=== PATIENT | female | born 2000 | race Caucasian/White ===

== ENCOUNTER 2024-08-28 08:04 | Outpatient (CLI) | payer OTHER, SELFPAY ==
--- NOTE | 2024-08-28 08:15 | CRLHL7_ITS ---
For Patients: As a result of the Cures Act, medical imaging exams and procedure reports are released immediately into your electronic medical record. You may view this report before your referring provider. If you have questions, please contact your health care provider. INDICATION: First trimester scan, establish dates. COMPARISON: None. TECHNIQUE: Real-time abreu-scale imaging of the pelvis was performed. FINDINGS: Sonographic imaging demonstrates a single living intrauterine gestation. The embryo demonstrates a regular cardiac rate measuring 167 beats per minute. The embryo`s crown-rump length measurement of 1.3 cm corresponds to a gestational age of 7 weeks 4 days with a sonographic due date of 04/12/2025. There is a normal-appearing yolk sac. There are no gross abnormalities noted within the embryo at this early state of development. The gestational sac has a normal appearance. Inferior subchorionic hemorrhage measures 18 x 6 x 10 millimeters. Additional inferior subchorionic hemorrhage measures 8 x 3 x 6 millimeters. Superior subchorionic hemorrhage measures 13 x 4 x 3 millimeters. The amount of fluid within the sac appears appropriate for gestational age. The cervix is closed. The myometrium appears normal. The ovaries are of normal size. Corpus luteal cyst left ovary. There are no suspicious fluid collections noted in the cul-de-sac. IMPRESSION: Single living intrauterine with sonographic gestational age 7 weeks 4 days and sonographic due date 04/12/2025. Three subchorionic hemorrhages measuring up to 1.8 cm. Dictated by Jose Carlos Nava MD @ 08/28/2024 10:51:15 AM (Electronically Signed)
== END 2024-08-28 08:05 | disposition home or self-care (01) ==
LOC: US 08:05
PROVIDERS: Visit Provider Registered Nurse
DX: Z34.91 Encounter for supervision of normal pregnancy, unspecified, first trimester (principal); O20.9 Hemorrhage in early pregnancy, unspecified; Z3A.01 Less than 8 weeks gestation of pregnancy
CPT/HCPCS: 76817; 82565; 82570; 84156; 84450; 84460; 84520; 86592; 86703; 86704; 86706; 86762; 86787; 86803; 86850; 86900; 86901; 87086; 87340; 87491; 87591

== ENCOUNTER 2024-09-11 10:34 | Outpatient (CLI) | payer OTHER, SELFPAY ==
--- NOTE | 2024-09-11 10:45 | CRLHL7_ITS ---
For Patients: As a result of the Century Cures Act, medical imaging exams and procedure reports are released immediately into your electronic medical record. You may view this report before your referring provider. If you have questions, please contact your health care provider. INDICATION: Follow-up subchorionic hemorrhages COMPARISON: 08/28/2024 TECHNIQUE: Real-time abreu-scale imaging of the pelvis was performed. FINDINGS: Sonographic imaging demonstrates a single living intrauterine gestation. The embryo demonstrates a regular cardiac rate measuring 179 beats per minute. The embryo`s crown-rump length measurement of 2.7 cm corresponds to a gestational age of 9 weeks 4 days with a sonographic due date of 04/12/2025. There is a normal-appearing yolk sac. There are no gross abnormalities noted within the embryo at this early state of development. The gestational sac has a normal appearance. Inferior left subchorionic hemorrhage measures 1.4 x 0.9 x 0.8 cm. Inferior right subchorionic hemorrhage measures 1.8 x 1.4 x 1.1 cm. The amount of fluid within the sac appears appropriate for gestational age. The cervix is closed. The myometrium appears normal. The ovaries are of normal size. Corpus luteal cyst left ovary. There are no suspicious fluid collections noted in the cul-de-sac. IMPRESSION: There are 2 inferior subchorionic hemorrhages measuring 1.4 cm and 1.8 cm. The superior subchorionic hemorrhage is no longer present. Dictated by Jose Carlos Nava MD @ 09/11/2024 11:57:06 AM (Electronically Signed)
== END 2024-09-11 10:35 | disposition home or self-care (01) ==
LOC: US 10:34
PROVIDERS: Visit Provider Registered Nurse
DX: O20.9 Hemorrhage in early pregnancy, unspecified (principal)
CPT/HCPCS: 76801; 76817

== ENCOUNTER 2024-12-04 09:59 | Outpatient (CLI) | payer OTHER, SELFPAY ==
--- NOTE | 2024-12-04 10:15 | CRLHL7_ITS ---
For Patients: As a result of the Century Cures Act, medical imaging exams and procedure reports are released immediately into your electronic medical record. You may view this report before your referring provider. If you have questions, please contact your health care provider. OBSTETRICAL ULTRASOUND ??? ANATOMY SURVEY INDICATION: anatomy survey. LMP: 06/26/2024. MARLENI by LMP: 04/12/2025. GESTATIONAL AGE: 21w 4d. TECHNIQUE: Transabdominal pelvic ultrasound. FINDINGS: position: Breech. Cervix: Visualized. Length of closed cervix: 3.0 cm. Placenta position: Posterior. Placenta tip to internal os: 7.3 cm. Umbilical cord: 3-vessel cord. Placental insertion: Central. Amniotic fluid: 3.7 cm SDP (>2-<8cm) ANATOMY SURVEY: Observed Structures Cerebellum: 2.2 cm, 22 weeks 2 days Cisterna magna: 6.4 mm Nuchal fold: 5.1 mm Lateral ventricle: 5.3 mm CSP Midline falx Choroid plexus Spine Stomach Abdominal cord insert Urinary bladder Kidneys Diaphragm Nose/lips Orbital view Profile Upper extremities Lower extremities Hands Feet 4-chamber heart LVOT RVOT 3VV 3VTV Biometry: BPD: 5.1 cm, 21 weeks 2 days, 36.7 % HC: 18.8 cm, 21 weeks 1 days, 20.5 % AC: 17.6 cm, 22 weeks 4 days, 72.8 % FL: 3.5 cm, 20 weeks 6 days, 19.4 % FL/AC: 19.66 % HC/AC ratio: 1.07 heart rate: 157 bpm age by this ultrasound: 21 weeks 4 days MARLENI by this ultrasound: 04/12/2025 Estimated weight: 443.9 grams (1 pound 0 ounces) Percentile by MARLENI: 51.0 % IMPRESSION: Single live intrauterine gestation. No gross anomalies visualized. Dorota Bravo M.D. Diagnostic/Breast Radiologist [email or web address] SP/Dictated by: Dorota Bravo MD @ 12/04/2024 6:14:00 PM (Electronically Signed)
== END 2024-12-04 10:00 | disposition home or self-care (01) ==
LOC: US 10:00
PROVIDERS: Visit Provider Obstetrics & Gynecology
DX: Z34.92 Encounter for supervision of normal pregnancy, unspecified, second trimester (principal); Z3A.21 21 weeks gestation of pregnancy
CPT/HCPCS: 76805

== ENCOUNTER 2025-01-22 11:06 | Outpatient (CLI) | payer OTHER, SELFPAY | END 2025-01-22 11:07 | disposition home or self-care (01) | LOC: NFLDREF 11:06 | PROVIDERS: Visit Provider Obstetrics & Gynecology | DX: O99.013 Anemia complicating pregnancy, third trimester (principal); Z3A.28 28 weeks gestation of pregnancy | CPT/HCPCS: 82728; 86592 ==

== ENCOUNTER 2025-03-06 10:10 | Outpatient (CLI) | payer OTHER, SELFPAY | END 2025-03-06 10:11 | disposition home or self-care (01) | LOC: NFLDREF 03-13 15:41 | PROVIDERS: Visit Provider Obstetrics & Gynecology | DX: O99.013 Anemia complicating pregnancy, third trimester (principal); D64.9 Anemia, unspecified; Z3A.34 34 weeks gestation of pregnancy | CPT/HCPCS: 82728 ==

== ENCOUNTER 2025-03-26 13:15 | Outpatient (RCR) | payer OTHER, SELFPAY ==
--- NOTE | 2025-03-08 09:38 | ONC.NURNOTE ---
Diagnosis: Iron Deficiency Anemia of
[2025-03-13 08:15] VITALS: BP 127/81; PULSE 97; RESP 18; TEMP 36.7; O2SAT 98
[2025-03-13 09:15] VITALS: BP 122/79; PULSE 86; RESP 16; TEMP 36.6; O2SAT 98
[2025-03-13 09:50] VITALS: BP 117/78; PULSE 88; RESP 16; TEMP 36.8; O2SAT 99
[2025-03-18 13:56] VITALS: BP 122/84; PULSE 105; RESP 16; TEMP 36.8; O2SAT 99
[2025-03-18 14:37] VITALS: BP 116/75; PULSE 109; RESP 16; TEMP 36.7; O2SAT 97
[2025-03-18 15:12] VITALS: BP 107/70; PULSE 98; RESP 12; TEMP 36.6; O2SAT 98
[2025-03-20 13:48] VITALS: BP 119/77; PULSE 90; TEMP 36.4; O2SAT 99
[2025-03-20 14:39] VITALS: BP 112/75; PULSE 88; RESP 14; O2SAT 98
[2025-03-20 15:05] VITALS: BP 114/76; PULSE 87; RESP 16; O2SAT 97
[2025-03-22 08:04] VITALS: BP 119/78; PULSE 100; TEMP 36.1; O2SAT 98
[2025-03-22 09:05] VITALS: BP 109/76; PULSE 91; RESP 16; TEMP 36.3; O2SAT 97
[2025-03-26 13:20] VITALS: BP 121/74; PULSE 86; RESP 16; TEMP 36.7; O2SAT 98
[2025-03-26 14:13] VITALS: BP 109/72; PULSE 77; RESP 16; O2SAT 98
[2025-03-26] MEDS: SODIUM CHLORIDE 0.9 % (FLUSH) 10 ML SYRINGE IVF (14:13)
== END 2025-09-09 23:59 | disposition home or self-care (01) ==
LOC: CCIC 13:15
PROVIDERS: Visit Provider Clinical Nurse Specialist
DX: O99.013 Anemia complicating pregnancy, third trimester (principal); D50.9 Iron deficiency anemia, unspecified
CPT/HCPCS: 87081; 87653; 96365; J1756; J7050

== ENCOUNTER 2025-04-13 17:49 | Outpatient (CLI) | payer OTHER, SELFPAY ==
--- OUTSIDE RECORDS SUMMARY | 2025-04-13 18:23 | XMS_ITS | Clinical Summary ---
Author Organization [facility] Address [address] [place] [address] Care Team Providers Care Interpreter Translator Name Role Phone Sasha Byrne APRN, C.N.P. Primary Care Pro vider Source Comments Patient records contain information from all sites at [facility]. For routine questions regarding patient records, call [phone] during business hours, M-F 8:00 AM - 5:00 PM Central Time. Record requests for emergency care only can be directed to [phone] at any time.[facility] Allergies Active Allergy Reactions Criticality Noted Date Comments Amoxicillin Rash 01/13/2016 Medications * This document contains information received from the source organization and may not represent a complete record from that organization. dextroamphetamin e-amphetamine (AdderalL) 5 mg tablet Take 1 tablet (5 mg total) by mouth daily. 30 tablet 06/12/2024 Active Active Problems Problem Noted Date Diagnosed Date Attention Deficit With Hyperactivity Disorder Encounters Date Type Department Care Team Description 02/19/2025 Orders Only [facility] PCP [facility] Sasha Byrne APRN, C.N.P. from Last 3 Months Immunizations Immunization Administration Dates Next Due 4vHPV (discontinued) 06/08/2010 DTaP (Infanrix, [employer]) 06/14/2003,,1998,1998, 1998 HPV, Unspecified 02/01/2011,08/12/2010, 0 HepA Pediatric/Adolescent 02/26/2014,06/08/2010 HepB, Unspecified 02/02/1999,1998,08/04/19 98 Hib, Unspecified 1998,1998, 8 IPV 06/14/2003 Influenza, Seasonal, Injectable 07/10/2014 MCV4 (Menactra)(Discontinued) 03/20/2014 MMR 06/14/2003,07/15/1999 OPV 10/14/1999,08/04/1999,1998 Tdap 05/18/2022,06/08/2010 JONE 06/08/2010,06/14/2003 Family History Relation Name Status Comments Father Alive Mother Alive Social History Tobacco Use Types Packs/Day Years Used Date Smoking Tobacco: Former Smokeless Tobacco: Never Tobacco Cessation:Counseling Given: Yes Alcohol Use Standard Drinks/Week Comments Not Currently 0 (1 standard drink = 0.6 oz pur e alcohol) Humiliation, Afraid, Rape, and Kick questionnair e Answer Date Recorded Fear of Current or Ex-Partner No Emotionally Abused No 04/03/2019 Physically Abused No 04/03/2019 Sexually Abused No 04/03/2019 Hunger Vital Sign Answer Date Recorded Worried About Running Out of Food in the Last Ye ar Never true 04/03/2019 Ran Out of Food in the Last Year Never true 04/03/2019 PRAPARE - Transportation Answer Date Re corded Lack of Transportation (Medical) No 04/03/2019 Lack of Transportation (Non-Medical) No 04/03/2019 Depression Answer Date Recor ded PHQ-9 Total Score (max 27) 0 07/12 Education Answer Date Recorded What is the highest level of school you have completed or the highest degree you have received? 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 Gender Identity Not on file Sexual Orientation Not on file Last Filed Vital Signs Vital Sign Reading Time Taken Comments Blood Pressure 118/74 06/12/2024 3:12 PM CDT Pulse 75 06/12/2024 3:12 PM CDT Temperature 36.3 C (97.3 F) 06/12/2024 3:12 PM CDT Respiratory Rate 20 06/12/2024 3:12 PM CDT Oxygen Saturation 100% 07/12/2023 7:48 AM CDT Inhaled Oxygen Concentration - - Weight 61.7 kg (136 lb) 06/12/2024 3:12 PM CDT Height 164 cm (5' 4.57) 06/12/2024 3:12 PM CDT Body Mass Index 22.94 06/12/2024 3:12 PM CDT Plan of Treatment Health Maintenance Due Date Last Done Comments COVID-19 Vaccine ( season) 2024 Influenza Vaccine (#1) 2024 07/10/2014 Depression Screening (Annual PHQ-2) 10/17/2024 Cervical/Vaginal Cancer Screening 05/18/2025 05/18/2022, 04/03/2019 HIV Screening 06/12/2025 Postponed from 1998 (Patient Refused) Hepatitis C Screening 06/12/2025 Postpo magnolia from 1998 (Patient Refused) Tobacco Cessation counseling 06/12/2025 06/12/2024 DTaP,Tdap,and Td Vaccines (8 - Td or Tdap) 05/18/2032 05/18/2022, 06/08/2010, 06/14/2003, Additional history exists Hepatitis B Vaccines Completed 02/02/1999, 1998, 1998 IPV Vaccines Completed 06/14/2003, 09/17, 08/04/1999, Additional history exists Varicella Vaccines Completed 06/08/2010, 06/14/2003 HPV Vaccines Completed 02/01/2011, 07/18, 06/08/2010, Additional history exists Pneumococcal vaccine (0-49 years) Aged Out No longer eligible based on patient's age to complete this topic Procedures Procedure Name Priority Date/Time Associated Diagnosis Comments THINPREP SCREEN HPV REFLEX Routine 05/18/2022 11:21 AM CDT Well Adult Examination Normal from Last 3 Months or Most Recently Relevant to Health Maintenance Results * ThinPrep Screen HPV Reflex (05/18/2022 11:21 AM CDT) 05/26/2022 2:05 PM CDT [facility] Report electronically signed by Jorge Long MD I verify that I have examined all relevant slides/materials for the specimen(s) and rendered or confirmed the diagnosis. 05/26/2022 2:05 PM CDT [facility] Gross Description Received specimen in a ThinPrep vial. 05/26/2022 2:05 PM CDT [facility] Pap Test Source Cervical/Endocervi zain 05/26/2022 2:05 PM CDT [facility] Hormone Therapy/Contracep tives None/Not known 05/26/2022 2:05 PM CDT [facility] Interpretation Cervical/Endocervi zain (ThinPrep): Satisfactory for Evaluation Negative for Intraepithelial Lesion or Malignancy Reactive cellular changes associated with: Reparative or inflammatory changes 05/26/2022 2:05 PM CDT [facility] Varies (Cervix/Endocerv ix) 05/18/2022 11:21 AM CDT 05/19/2022 6:15 AM CDT Sasha Byrne APRN, C.N.P. LAB PAP PATHDX OR DERABLES Final Result [facility] [address] [place] [address], [facility] [address] [place] [phone] from Last 3 Months or Most Recently Relevant to Health Maintenance Care Teams Interpreter Translator Relationship Specialty Start Date End Date Sasha Byrne APRN, C.N.P. [facility] [address] [place] [address] PCP - General 03/31/17
[2025-04-13 18:56] VITALS: BP 118/66; PULSE 91
[2025-04-13] MEDS: ONDANSETRON ODT 4 MG TAB PO (20:27)
[2025-04-13] MEDS: hydrOXYzine pamoate 25 MG CAPSULE 100 MG PO (20:28)
[2025-04-13] MEDS: MORPHINE 10 MG/ML inj IM (20:29)
--- NOTE | 2025-04-13 23:26 | PC.OBNST ---
NST Note NST Note Start: 04/13/25 17:43 Freq: ONCE Status: Discharge Protocol: Document 04/13/25 20:54 LORAINE (Rec: 04/13/25 20:55 LORAINE [id number]) NST Note 1 Para (# of births) 0 EDC 04/12/25 Gestational Age In 40 Weeks & 1 Days Weeks & Days Patient Presented Contractions/cramping with Complaint(s) of Reactive Yes Appropriate for Yes Gestational Age RN Vanna RN Date 04/13/25 Reactive Yes Appropriate for Yes Gestational Age RN Michael RN Date 04/13/25 OB NST charge Yes Complete NST Note Yes via Write Note The provider's electronic signature indicates the NST is reactive/appropriate for gestational age. *Note to provider: If an addendum is required, open the patient's chart and click on the note under the Nurse/Allied Health tab.
== END 2025-04-13 21:52 | disposition home or self-care (01) ==
LOC: OB OUT 17:50 → OB 20:22
PROVIDERS: Visit Provider Obstetrics & Gynecology
DX: O47.1 False labor at or after 37 completed weeks of gestation (principal); Z3A.40 40 weeks gestation of pregnancy
CPT/HCPCS: 59025; G0463; A9270; J2270

== ENCOUNTER 2025-04-14 03:06 | Inpatient (IN) | payer OTHER, SELFPAY ==
[2025-04-14] VITALS (137 sets, daily range): BP systolic 100–146; BP diastolic 50–85; PULSE 66–134; RESP 16–18; TEMP 36.6–38.1; O2SAT 91–100; BMI 33.2
--- OUTSIDE RECORDS SUMMARY | 2025-04-14 02:41 | XMS_ITS | Clinical Summary ---
Author Organization [facility] Address [address] [place] [address] Care Team Providers Care First Responder Name Role Phone Sasha Byrne APRN, C.N.P. Primary Care Pro vider Source Comments Patient records contain information from all sites at [facility]. For routine questions regarding patient records, call [phone] during business hours, M-F 8:00 AM - 5:00 PM Central Time. 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 [facility] [address] [place] [address] PCP - General 03/31/17
[2025-04-14] MEDS: LACTATED RINGERS 1000 ML 1,000 ML 999 ML IV ×2 (03:03→04:11)
[2025-04-14 03:04] LABS: Hematocrit 39.5 % (33.0-51.0); Hemoglobin* 13.0 gm/dL (12.0-16.0); Immature Granulocytes Pct Auto 0.9 %; Mean Corpuscular HGB Conc 33 gm/dL (32-36); Mean Corpuscular Hemoglobin 28 pg (26-34); Mean Corpuscular Volume 84 fL (80-100); RDW Coefficient of Variation % 21.7 % (11.5-15.5); Red Blood Count 4.70 m/uL (4.00-5.20); White Blood Count* 17.61 K/uL (4.50-11.00)
[2025-04-14 03:08] LABS: Immature Granulocytes Abs Auto 0.20 K/uL (0.00-0.30); Lymphocytes Absolute Auto 1.30 K/uL (0.90-2.90); Slide Review Reflex No
[2025-04-14] MEDS: LIDOCAINE 2% (PF) 5 ML VIAL EPIDURAL (03:58)
[2025-04-14] MEDS: ROPIVACAINE 0.2% 100 ml 100 ML 12 MG EPIDURAL ×2 (04:01→12:06)
--- NOTE | 2025-04-14 04:15 | P.ANBPRC_ITS ---
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 living situation?: I presently have a place to live Problems where you live: no known problems In the past 12 months, utilities in danger of being shut off: no In past 12 months, lack of transportation kept you from medical appts, meetings, work, or getting things needed for daily living: no In the past 12 mos, have been you worried that your food would run out before you had money to buy more?: never true In the past 12 mos, the food you bought just didn't last and you didn't have money to buy more?: never true Smoking Status: Former smoker How often does anyone, including family, friends and others, physically hurt you : never How often does anyone, including family, friends and others, insult or talk down to you: never How often does anyone, including family, friends and others, threaten you with harm: never How often does anyone, including family, friends and others, scream or curse at you: never Meds Home Medications and Allergies Home Medications ?Medication ?Instructions ?Recorded ?Confirmed ?Type docosahexaenoic acid 200 mg mg PO 08/28/24 04/09/25 Hi story capsule ( DHA) omeprazole 40 mg capsule,delayed 40 mg PO QDAY #90 cap s 03/20/25 04/09/25 Rx release Allergies Allergy/AdvReac Type Severity Reaction Status Date / Time amoxicillin Allergy Intermediate Verified 04/09/25 10:42 Results Labs Labs: Laboratory Results - last 24 hr 04/14/25 02:50 WBC 17.61 H RBC 4.70 Hgb 13.0 Hct 39.5 MCV 84 MCH 28 MCHC 33 RDW Coeff of Alesha 21.7 H Plt Count 238 Neut % (Auto) 87.3 H Lymph % (Auto) 7.6 L Traill % (Auto) 4.1 Eos % (Auto) 0.0 Baso % (Auto) 0.1 Neut # (Auto) 15.40 H Lymph # (Auto) 1.30 Traill # (Auto) 0.70 Eos # (Auto) 0.00 Baso # (Auto) 0.00 Abs Immat Gran (auto) 0.20 Imm/Tot Granulo (auto) 0.9 Blood Type A Positive Antibody Screen NEGATIVE Vital Signs Vital Signs: Last Vital Signs Pulse 115 H 04/14/25 04:13 BP 116/66 04/14/25 04:13 Pulse Ox 98 04/14/25 04:10 Weight: 87.77 kg Height: 162.56 cm Anesthesia Procedures Epidural Insertion Patient Location: OB Start Time: 03:00 Stop Time: 04:00 Start Date: 04/14/25 Stop Date: 04/14/25 Reason for Block: primary anesthetic Patient Position: sitting Performed By: Nicanor Ramirez Preanesthetic Checklist: IV checked, risks and benefits discussed, surgical consent, monitors and equipment checked, pre-op evaluation, timeout performed and anesthesia consent Prep: chlorhexidine gluconate Monitoring: blood pressure monitoring, nuclear monitoring technician, continuous pulse oximetry and heart rate Approach: midline Vertebral Space: lumbar (1-5) Needle Type: Tuohy needle Injection Technique: continuous catheter Needle gauge: 17 Needle Length (cm): 10 cm Needle Insertion Depth (cm): 6 Catheter Gauge: 19 Catheter Type: multi-orifice Catheter at skin depth (cm): 12 Test Dose Result: negative and lidocaine 1.5% with epinephrine 1 to 200,000 Events: other
--- NOTE | 2025-04-14 07:44 | P.LDBA_ITS ---
Subjective History of Present Illness Time Seen by Provider: 07:45 Date Seen: 04/14/25 Narrative: Patient is being admitted to Labor and Delivery in early labor for delivery. She is a 25 year old at 40 2/7 weeks gestation. Her full history and physical was dictated by Dr. HUANG on 03/26/25. Please see this for details. Patient has been experiencing regular and more painful contractions since yesterday morning. She presented to labor and delivery last night and was found with regular contractions, cervix remained 3cm dilated and patient was given the option for admission and labor augmentation vs going home and continued monitoring. Patient decided to receive some pain medication Morphine and Vistaril and felt comfortable to go home and continue monitoring. Patient states that she was able to sleep for a while, but was woken up at around 2am again with painful regular contractions. Patient returned to L&D she was found 4cm but not coping well with labor contractions and recommendation was given for admission. Specific Issues/Plans G 1 P 0 Partner: Dung Tian Baby: Boy! H&P: SAL on 03/26/2025 Genetic screening collected 10/02/24 - Aneuploidy+Carrier/Gender: low risk for aneuploidy, negative carrier screen. # Hep B non-immune. Discussed. Declines vaccine. # ADHD. Stopped Adderall before . Managing okay without medication for now, but does notices decreased attention. # vasovagal episode during glucose screen * 1 hour glucose screen: 147. * Patient opts to check blood sugars q.i.d.: all entirely normal on review at 30.5 weeks # Anemia - Hgb 10.2 on 01/22/2025, ferritin 7. * Oral iron q.o.d. * 34 week hemoglobin: 10.0-IV iron infusions completed on 03/26/25 Imagin12/04/2024 FAS Vaccinations: Flu: Recommended. Declines Covid: Not vaccinated. Recommended. Declines. Tdap: 02/06/25 RSV: n/a 32 week mental health: 02/20/25 Last pap: May 2022 normal, due at her 6 week visit. OB - Problem Based A/P Additional Plan (1) : Status: Acute Plan 1. Admitted in early labor, term gestation and not managing labor contractions well for labor augmentation. 2. Epidural in place and patient is doing much better. Cervix checked and found 5.5cm/80%/0/vertex. It does seem that baby is OT and cervix is a bit deviated towards patient left side. Contractions did space out a bit after epidural placement, but cervix has continued to change. Recommendation was given for AROM to continue labor progress. Meconium stained fluid noted, will have peds for delivery. Continue position changes. If external monitoring continues to show irregular contractions after some time after AROM, recommend starting IV Oxytocin. 3. GBS negative no need for antibiotics. 4. NST has shown 2-3 episodes of sporadic late decelerations since admission, in general moderate variability and accelerations will keep close monitoring. 5. History of anemia, but normal hemoglobin upon admission. Delivery/Labor/Induction Plan Plan: other (Labor augmentation) OB Result Labs Labs: Hemoglobin upon admission 13.0mg/dL OB Exam Physical Exam Vital signs: Temp Pulse Resp BP Pulse Ox 98 F 115 H 18 126/73 96 04/14/25 04:31 04/14/25 07:18 04/14/25 04:31 04/14/25 07:18 04/14/25 07:41 Detailed Labor and Delivery Exam Patient Gravid: yes Dilation (cm): 5 Effacement (%): 80 Cervix position: mid Consistency: soft Tachysystole: No Contraction intensity: Mild Fetus (Single) Station: 0 Amniotic Membrane Status: AROM Amniotic Membrane Fluid Description: Meconium Stained Heart Rate Baseline: 140 Monitor Accelerations: Present Monitor Decelerations: Late (Sporadic) Long-Term Variability: Moderate (6-25)
[2025-04-14] MEDS: OXYTOCIN 30 unit/500 ML in NS 30 UNIT/500 ML BAG IVPB (11:23)
[2025-04-14] MEDS: LACTATED RINGERS 1000 ML 1,000 ML 120 ML IV (12:15)
--- NOTE | 2025-04-14 14:04 | P.OBPN_ITS ---
Subjective Time Seen by Provider: 13:00 Date Seen: 04/14/25 Narrative: Okay Objective Vital Signs: Last Vital Signs Temp 98.3 F 04/14/25 12:32 Pulse 86 04/14/25 13:57 Resp 18 04/14/25 04:31 BP 119/71 04/14/25 13:57 Pulse Ox 100 04/14/25 07:46 Pelvic Exam Dilation (cm): 7 Effacement (%): 90 Station: 0 Contractions Monitor mode: External Contraction pattern: Regular Contraction intensity: Moderate Assessment Assessment: active labor Station: 0 Amniotic Membrane Status: AROM Status: Category ll Heart Rate Baseline: 140 Lead Etl Developer Variability: Moderate (6-25) Monitor Accelerations: Present Monitor Decelerations: Late (Sporadic) Tracing Comments: Sporadic late decelerations noted upon admission had improved. IV Oxytocin was started shortly after 11am after her las cervical check by nursing. At around 12:30 pm noted to happen with 3 consecutive contractions. Oxytocin was stopped. I checked her again at around 1pm she is 7-8cm, baby does seem to have rotated to OA but suspect asynclitic. More bloody show noted, cervix is very stretchy. We have turned her to her left side and decelerations resolved. Accelerations noted and moderate variability. Will continue close monitoring of tracing. Plan Plan: Will plan to re check in 2 hours, sooner if there are any clinical changes.
--- NOTE | 2025-04-14 19:06 | PM.OBPNL ---
Subjective Date Seen: 04/14/25 Narrative: Okay Objective Vital Signs: Last Vital Signs Temp 98 F 04/14/25 17:00 Pulse 106 H 04/14/25 18:56 Resp 18 04/14/25 04:31 BP 131/76 04/14/25 18:56 Pulse Ox 100 04/14/25 07:46 Pelvic Exam Dilation (cm): 8 Effacement (%): 90 Station: 0 Contractions Monitor mode: External Contraction pattern: Regular Contraction intensity: Moderate Pitocin Rate (mU/min): 2 Assessment Station: 0 Amniotic Membrane Status: AROM Status: Category ll Heart Rate Baseline: 140 Envelope Folding Machine Operator Variability: Moderate (6-25) Monitor Accelerations: Present Monitor Decelerations: Late (Sporadic) Plan Plan: Patient has remained 7-8cm for the past at least 2 cervical checks. We have been unable to continue up titrating IV Oxytocin due to start of late decelerations. We have attempted many position changes, AROM and IV Oxytocin. She was admitted this morning at around 2am and she was 4cm and she has changed to 8cm. I have believed that baby is asynclitic and head has not rotated significantly. I have been also unable to disengage a bit to try manual rotation. At this time I have recommended to proceed with delivery. Discussed how procedure is performed, family centered , usual recovery and informed consent. Discussed risks associated with surgery such as bleeding and needing blood transfusions and she does accept, discuss risks of infection, damage to nearby organs, blood clots. Answered questions and patient and family feel comfortable with the recommendation and proceeding with delivery.
[2025-04-14] MEDS: CLINDAMYCIN 900 MG/50 ML-D5W 900 MG/50 ML PIGGYBACK 100 MG IVPB (19:39)
[2025-04-14] MEDS: GENTAMICIN 340 MG in 0.9 % SODIUM CHLORIDE 100 ml 100 ML 108.5 MG IVPB (19:55)
[2025-04-14] MEDS: metroNIDAZOLE 500 MG/100 ML for IV IVPB (20:50)
--- NOTE | 2025-04-14 20:58 | P.OBPRC_ITS ---
OB Delivery Proc Additional Procedures Tubal Ligation at the time of : No Other: No Procedure Date of procedure: 04/14/25 Pre-op diagnosis: IUP at 40 2/7 weeks Arrest in dilation Persistent category 2 tracing Post-op diagnosis: same (Now delivered) Procedure Done: Global Will [facility] bill your pro fee for this procedure?: Yes Blood Loss Measurement Type: QBL (551mL) Bakri Used: No IV fluids (mL): 1,200 Urine Output (mL): 75 Urine Output Comment: Clear at end of surgery Surgeon: Hayde Kendrick MD Anesthesia Type: Epidural Findings: FINDINGS: Live-born male , OP presentation, tight nuchal cord, meconium stained fluid, Apgars 8 and 9 at 1 and 5 minutes respectively. weight 3380g. Bilateral normal ovaries and fallopian tubes. Procedure Name: Primary Low Transverse Section Procedure Description: PROCEDURE: After obtaining informed consent, the patient was taken to the operating room where epidural anesthesia was found to be adequate. She was prepared and draped in the normal sterile fashion in the dorsal supine position with a leftward tilt. A Pfannenstiel skin incision was made with a scalpel about 2 cm above symphysis pubic bone, 12-14 cm in length. This incision was carried down to the underlying layer of fascia with the Bovie and scalpel. The fascia was incised in the midline and the incision extended laterally. The rectus muscles were then in the midline. Peritoneum entered bluntly. The Feroz O retractor was then placed into the incision. The lower uterine segment was then incised in a transverse fashion with the scalpel. Upon entry into the uterus, thick meconium stained amniotic fluid was noted. The uterine incision was extended cephalo caudally with blunt finger fractionation. The infant's head was delivered atraumatically, tight nuchal cord was reduced and the remainder of the infant's body was delivered assisted by fundal pressure. The cord was doubly clamped and cut after at least 30 seconds of delayed cord clamping and the infant was handed off the field to banner for evaluation. The placenta was delivered spontaneously with umbilical cord traction and fundal massage. The uterus was cleared of all clots and debris. The uterine incision was reapproximated in a running locking fashion with a 0 Vicryl suture. A 2nd layer of the same suture was used to imbricate in horizontal fashion. The gutters were inspected and cleared of blood clots. All instruments and retractors were removed. Peritoneal layer was reapproximated with Vicryl 3-0 in a continuous fashion. Subfascial layer inspected and hemostasis secured. The fascia was reapproximated in a running fashion with a looped 0 Vicryl suture. The subcutaneous tissues were copiously irrigated, inspected and hemostasis secured. The subcutaneous fat layer was reapproximated with running sutures of 3-0 Vicryl. The skin was closed in a subcuticular fashion with 4-0 Monocryl. LiquiBand and dressing were applied. The patient tolerated the procedure well. Sponge, lap, needle, and instrument counts were reported as correct x2. The patient was taken to the recovery room, awake, and in stable condition. She did receive Clindamycin, Gentamicin and Metronidazole preoperatively. Complications: None Pathology: specimen obtained, sent to pathology (Placenta due to unscheduled delivery) Surgery Debrief Performed: Yes Condition: stable Disposition: floor total score - 1 minute: 8 total score - 5 minute: 9
--- NOTE | 2025-04-14 21:08 | P.ANES_ITS ---
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
--- NOTE | 2025-04-14 21:08 | W.ANESCHARGE ---
Anesthesia Charges Start Date/Time Anesthesia Start Date: 04/14/25 Anesthesia Start Time: 19:34 Stop Date/Time Anesthesia Stop Date: 04/14/25 Anesthesia Stop Time: 20:57 Summary Emergency: REFRACTORY WORKER Coding CPT Codes CPT Codes: ANES/ANALG CS DELIVER ADD-ON - 66941 ([id number]) P2 - PATIENT W/MILD SYST DISEASE, QZ - REFRACTORY WORKER SVC W/O PLASMA PROCESSOR BY Additional Codes: Summary - Emergency: REFRACTORY WORKER ([id number])
--- NOTE | 2025-04-14 21:09 | W.PM.NB ---
Nerve Block Nerve Block Time Seen by Provider: 20:45 Date Seen: 04/14/25 Type of block requested by surgeon for post-operative analgesia: TAP Side: bilateral Time out performed: Yes Verification of patient name: Yes Verification of date of : Yes Site marking: not applicable Name of person performing procedure: Jeane Continuous monitoring Was continuous monitoring of O2 sat, B/P, threat monitoring analyst, recorded every 15 minutes?: Yes Procedure Checklist: sterile prep, needles and gloves Ultrasound guided. Images saved: Yes Medications given in 5ml increments after negative aspiration: Marcaine %: 0.25 mL: 30 Needle gauge: 20 and Exparel mL: 10 Patient tolerated procedure well: Yes Block Charges Block Charge (with Pro Fee): TAP Bilateral Use of Ultrasound Machine for Block: Yes- US Guidance/pain block
[2025-04-14] MEDS: ACETAMINOPHEN 500 MG TABLET 1000 MG PO (22:49)
[2025-04-15] VITALS (21 sets, daily range): BP systolic 98–113; BP diastolic 64–76; PULSE 66–101; RESP 12–20; TEMP 36.4–36.7; O2SAT 96–98
[2025-04-15] MEDS: ACETAMINOPHEN 500 MG TABLET 1000 MG PO ×2 (05:48→11:57)
[2025-04-15 07:13] LABS: Hemoglobin* 10.2 gm/dL (12.0-16.0)
[2025-04-15] MEDS: DOCUSATE SODIUM 100 MG CAPSULE PO (08:18)
--- NOTE | 2025-04-15 14:47 | PM.OBPNVD1 ---
OB - PN:Subj Subjective Time Seen by Provider: 14:47 Date Seen: 04/15/25 Patient comments OB post-: pain well controlled, tolerating diet and flatus present status: and other (not latching well. finger feeding with formula and EBM) Narrative: [Feroz] feels well.? Her pain is well controlled with current medications.? She has no new complaints.? Urinary output is adequate and she is voiding without difficulty.? Has a good appetite, is tolerating a general diet, is passing flatus, and has [not] had a bowel movement.?she did take a stool softener this AM. Has normal amount of rubra lochia.? She is ambulating well.? OB - PN: Obj Exam Physical Exam: Vital signs: Temp Pulse Resp BP Pulse Ox O2 Del Method 97.6 F 101 H 16 106/71 98 Room Air 04/15/25 11:45 04/15/25 11:45 04/15/25 12:18 04/15/25 11:45 04/15/25 11:45 04/15/25 11:45 Narrative: GENERAL APPEARANCE:? normal affect, alert, no distress? MOOD:? appropriate? CHEST:? clear to auscultation and percussion? HEART:? regular rate and rhythm? ABDOMEN:? soft, non-tender the uterine fundus is firm and -1 and is appropriate for the stage of recovery. Incision; covered, d/t? EXTREMITIES:? normal and trace edema? OB - PN: Obj Data Labs Labs: Laboratory Results - last 24 hr 04/15/25 07:05 Hgb 10.2 L OB - PN: A/P Delivery Assessment and Plan (1) S/P primary low transverse : Status: Acute (2) Lactating mother: Status: Acute Plan day: 1 Plan: routine care Comments: Anticipate d/c later tomorrow or on day 3 pending pt status and .
[2025-04-16 01:30] VITALS: BP 98/65; PULSE 82; RESP 14; TEMP 36.3; O2SAT 99
[2025-04-16 08:00] VITALS: BP 116/79; PULSE 76; RESP 16; TEMP 36.5; O2SAT 99
[2025-04-16] MEDS: ACETAMINOPHEN 500 MG TABLET 1000 MG PO (08:37)
[2025-04-16] MEDS: DOCUSATE SODIUM 100 MG CAPSULE PO (08:37)
--- NOTE | 2025-04-16 09:27 | PM.OBDSVD1 ---
DS: Providers Provider Date Seen: 04/16/25 Date of admission: 04/14/25 03:06 Primary care physician: Not a Local Provider Admitting Clinician: Lucía Kendrick MD Attending Physician on discharge: Chanda Guadarrama CNM Date of Discharge: 04/16/25 DS: Diagnosis Discharge Diagnosis (1) care following delivery: Status: Acute (2) S/P primary low transverse : Status: Acute (3) Lactating mother: Status: Acute Exam Narrative: Exam Narrative: VSS. ?AfebrileGENERAL APPEARANCE: ?normal affect, alert, no distress MOOD: ?appropriate HEENT: normocephalic, neck supple, full ROM CHEST: ?Symmetrical chest wall movement. ?Normal respiratory effort. ?Clear to auscultation HEART: ?regular rate and rhythm ABDOMEN: ?soft, non-tender. Uterine fundus is firm, at Umbilicus, Midline and is appropriate for the stage of recovery. ?Bowel sounds present. EXTREMITIES: ?normal and no edema SKIN: warm, dry. ? ?Incision clean/dry/well approximated. ?No signs of infection noted. Const: Vital Signs, click to edit/add: Vital Signs - 24 hr 04/15/25 10:18 04/15/25 11:18 04/15/25 11:45 Temperature 97.6 F Pulse Rate [Left P ulse Oximeter] 101 H Respiratory Rate 16 16 16 Blood Pressure [Le ft Arm] 106/71 Blood Pressure [Ri ght Arm] Pulse Oximetry 98 Oxygen Delivery Me thod Room Air 04/15/25 12:18 04/15/25 13:18 04/15/25 14:18 Temperature Pulse Rate [Left P ulse Oximeter] Respiratory Rate 16 16 16 Blood Pressure [Le ft Arm] Blood Pressure [Ri ght Arm] Pulse Oximetry Oxygen Delivery Me thod 04/15/25 15:18 04/15/25 16:20 04/15/25 16:20 Temperature 97.8 F Pulse Rate [Left P ulse Oximeter] 90 Respiratory Rate 16 16 20 Blood Pressure [Le ft Arm] Blood Pressure [Ri ght Arm] 102/69 Pulse Oximetry 98 Oxygen Delivery Me thod Room Air 04/15/25 18:18 04/15/25 21:19 04/15/25 21:19 Temperature 97.6 F Pulse Rate [Left P ulse Oximeter] 90 Respiratory Rate 16 16 18 Blood Pressure [Le ft Arm] Blood Pressure [Ri ght Arm] 112/76 Pulse Oximetry 98 Oxygen Delivery Me thod Room Air 04/16/25 01:30 04/16/25 08:00 Temperature 97.3 F L 97.7 F Pulse Rate [Left P ulse Oximeter] 82 76 Respiratory Rate 14 16 Blood Pressure [Le ft Arm] Blood Pressure [Ri ght Arm] 98/65 116/79 Pulse Oximetry 99 99 Oxygen Delivery Me thod Room Air Room Air Documenting provider has reviewed patient's vital signs: yes OB - DS: Summary Hospital Course Hospital Course: Feroz is a 25 y.o. who was admitted to [facility] for labor. ?She had an uncomplicated .?The patient feels well. ?The pain is well controlled with current medications. ?She has no new complaints. ?She is breast feeding and reports things are still a struggle, have been feeding with finger. Plans to work on latch today with nursing and make a plan for feeding at home. ? the patient has done well.? Vitals have been stable.? She has remained afebrile.? Has a good appetite, is tolerating a general diet. ?She is voiding without difficulty.? She is passing gas and has not had a bowel movement.? She is ambulating and denies any dizziness.? Has Small amount of rubra lochia. ?She is undecided on what she is planning for prevention. Peripartum Data Procedures: Procedures Operation Date: 04/14/25 19:30 Actual Procedure Side Surgeon p Primary Low Transverse Section Lucía Kendrick MD complications: none [place] Gender: Male Discharge Plan: Home A Gender: Male Status at Discharge Functional status at discharge: independent ambulation Overall status at discharge: patient is progressing back to baseline Time Spent with Patient Time attestation: Total time spent providing and/or coordinating discharge services: Time spent: Less than 30 minutes Discharge Plan Discharge Disposition: Home, Self-Care Date of Admission: 04/14/25 03:06 Attending Provider on Discharge: Chanda Guadarrama Primary Care Provider: Provider,Not a Local Condition: Stable Anticipated Discharge Date/Time: 04/16/25 12:00 Discharge Medications: New acetaminophen 500 mg Tablet 1,000 mg PO Q6H PRN (Reason: Pain) Qty: 0 0RF docusate sodium 100 mg Capsule 100 mg PO DAILY Qty: 90 0RF ibuprofen 600 mg Tablet 600 mg PO Q6H PRN (Reason: Pain) Qty: 60 0RF oxycodone 5 mg Tablet 5 - 10 mg PO Q4H PRN (Reason: Pain) Qty: 10 0RF Continued DHA 200 mg capsule 200 mg PO DAILY omeprazole 40 mg capsule,delayed release(DR/EC) 40 mg PO QDAY Qty: 90 1RF Discharge Orders: Discharge Order (Routine); Ordered 04/16/25 Ordered By: Chanda Guadarrama Patient Education: OB Over the Counter Medication Information, OB /Breast Feeding Additional Instructions: Discharge instructions were reviewed with the patient including signs and symptoms of infection and home going medications Lifting Restrictions: 20 pounds for 6 weeks No not submerge incision under water X 2 weeks? Nothing vaginally for 6 weeks: no tampons or intercourse Do not drive while taking narcotic pain medication(s) Off Work or School for 8 weeks 2-week visit: incision check, discuss feeding concerns, review control options and screen for anxiety/depression. 6-week visit for an annual exam. consultation services are available to all mothers and babies for the first year after delivery.? To make an appointment, please call [phone]. Activity Level: Activity as Tolerated Discharge Diet: Regular Follow Up App[facility]ments[facility] Inst[facility]
[2025-04-16] MEDS: IBUPROFEN 600 MG TABLET PO (11:52)
== END 2025-04-16 15:20 | disposition home or self-care (01) | DRG 788 ==
LOC: OB OUT 03:06 → OB 03:06
PROVIDERS: Admitting Provider Obstetrics & Gynecology; Visit Provider Obstetrics & Gynecology
PROC: 10D00Z1 Extraction of Products of Conception, Low, Open Approach (ICD-10-PCS; CPT 59514; principal; 2025-04-14 19:30)
DX: O99.02 Anemia complicating childbirth (principal); D64.9 Anemia, unspecified; O77.0 Labor and delivery complicated by meconium in amniotic fluid; O76 Abnormality in fetal heart rate and rhythm complicating labor and delivery; O62.0 Primary inadequate contractions; G89.18 Other acute postprocedural pain; Z28.39 Other underimmunization status; Z3A.40 40 weeks gestation of pregnancy; Z37.0 Single live birth
CPT/HCPCS: 01967; 01968; 36415; 64488; 76942; 85018; 85025; 86592; 86850; 86900; 86901; 94761; 99140; G0463; A4314; A9270; J0665; J0666; J0736; J1100; J1580; J1836; J1885; J2210; J2274; J2405; J2590; J2795; J3010; J7120

== ENCOUNTER 2025-04-18 10:40 | Outpatient (CLI) | payer OTHER, SELFPAY ==
--- NOTE | 2025-04-18 16:06 | P.LACCB_ITS ---
Consult Note - Mom Date of Visit Date of visit: 04/18/25 Reason for consultation: Assistance Needed, Breast/Nipple Issue (latch issue) and Other (baby with tongue tie) Visit Code: Visit Patient's Information Phone number: [phone] : 1 Para: 1 Allergies amoxicillin Allergy (Intermediate, Verified 04/09/25 10:42) Mother's Medical History: Medical History (Updated 04/17/25 @ 00:04 by Background Daemon) Anemia affecting ?O99.019 - Anemia complicating , unspecified trimester (ICD-10) Subchorionic hemorrhage ?O46.8X9 - Other antepartum hemorrhage, unspecified trimester (ICD-10) Delivery Information Delivery type: Primary C/S; Labored Gestational Age: 40+2 Gestational Weight For Age: AGA Weight: 3.38 kg Discharge Weight: 3.318 kg Percentage weight loss: 1.9 Baby's Information Baby's Age at Visit: 4 days Baby's Provider or Clinic: [facility], no appt yet Jaundice: No Past Experience Past Experience: No Current Frequency of Day Feedings: every 3 hours Frequency of Night Feedings: 3-3.5 hours Both Breasts: No Goals: not sure how long yet, depends on how it goes Pumping Pumping: Yes Quantity Pumped: 30-40ml every 3 hours Supplementing EBM Supplement: Yes Formula Supplement: Yes Baby Elimination Number of Wet Diapers a Day: 4-5 in last 24 hours Number of BM a Day: none for 36 hours Breast/Nipple Condition Breast Information: Breasts are symmetrical with rounded lower quadrants, intramammary distance is less than 1.5 inches. No erythema. Nipples are supple, everted prior to feeding. Breast Shape: Round and Firm Engorgement: No Maternal Nipple Condition - Left: Common Nipple Maternal Nipple Condition - Right: Common Nipple Sore Nipples: No Baby Assessment Skin: Normal Tongue/frenulum: Restricted mid-range and History of frenotomy Palate: Narrow (slight) Lips: Relaxed and Symmetrical Jaw Alignment: Symmetrical Mucosa: [place], moist Onsite Observation Pre-Feed weight: 3.27 kg Milk Transferred (mL): 3.3 Attachment/latch-on achieved: Not achieved (not attempted) Assessments/Interventions Assessments/Interventions: Mom is currently pumping and bottling EBM, and supplementing with formula as needed. Baby had a anterior tongue tie release in the hospital; posterior release options discussed with parents. Mom will continue to pump and bottle for now; will reassess feeding at the breast in the days ahead. Discussed pumping routine with her Spectra pump, reviewed settings. She is feeling well since delivery. Voiding and stooling well No headaches, no vision changes. Slight swelling in her feet that is even, no calf pain. She reports her mood is good; she is able to sleep when baby is resting. She is eating and drinking well. Education provided: Supply/demand nature of milk supply, Sore nipple treatment options, Pumping for milk management and Milk collection, storage Follow-Up Suggested follow up: Appointment as needed Recommend baby be seen by provider for:: circumcision appt and 2 weeks check up Recommend mom be seen by provider for:: 2 week checkup Time Spent Time spent with patient (min): 90 Meds Home Medications and Allergies Home Medications ?Medication ?Instructions ?Recorded ?Confirmed ?Type docosahexaenoic acid 200 mg 200 mg PO DAILY 08/28/24 0 04/14/25 History capsule ( DHA) omeprazole 40 mg capsule,delayed 40 mg PO QDAY #90 cap s 03/20/25 04/14/25 Rx release acetaminophen 500 mg tablet 1,000 mg (2 x 500 mg) PO Q 6H PRN 04/16/25 Rx Pain #0 tabs docusate sodium 100 mg capsule 100 mg PO DAILY #90 cap s 04/16/25 Rx ibuprofen 600 mg tablet 600 mg PO Q6H PRN Pain #60 t abs 04/16/25 Rx oxycodone 5 mg tablet 5 - 10 mg (1 - 2 x 5 mg) PO Q4H 04/16/25 Rx PRN Pain #10 tabs Allergies Allergy/AdvReac Type Severity Reaction Status Date / Time amoxicillin Allergy Intermediate Verified 04/09/25 10:42
== END 2025-04-18 10:41 | disposition home or self-care (01) ==
LOC: OB LAC 10:41
PROVIDERS: Visit Provider Obstetrics & Gynecology
DX: Z39.1 Encounter for care and examination of lactating mother (principal)
CPT/HCPCS: G0463